=== PATIENT | female | born 1990 | race Caucasian/White ===

== ENCOUNTER 2018-04-27 22:22 | Emergency (ER) | payer OTHER ==
[~2018-04-27] VITALS: Ht 170.2 cm; Wt 98.2 kg
[2018-04-27] MEDS ORDERED: SUMA25TA9 PO (22:37)
[2018-04-28 01:00] VITALS: BP 147/97
== END 2018-04-28 01:03 | disposition home or self-care (01) ==
LOC: EMS 22:23
DX: J40 Bronchitis, not specified as acute or chronic (principal); R19.7 Diarrhea, unspecified; R11.10 Vomiting, unspecified; I10 Essential (primary) hypertension; Z88.8 Allergy status to other drugs, medicaments and biological substances; Z79.899 Other long term (current) drug therapy; Z98.890 Other specified postprocedural states
CPT/HCPCS: 99283

== ENCOUNTER 2022-01-23 13:47 | Emergency (ER) | payer OTHER ==
[~2022-01-23] VITALS: Ht 170.2 cm; Wt 100.0 kg
[2022-01-23 13:47] VITALS: BP 148/100
[~2022-01-23 13:47] MED LIST: SUMA25TA9 PO
[2022-01-23 17:41] LABS: COVID AG,FIA SOURCE NASOPHARYNGEAL
[2022-01-23 18:07] LABS: INFLUENZA TYPE A NEGATIVE FOR TYPE A (NEGATIVE); INFLUENZA TYPE B NEGATIVE FOR TYPE B (NEGATIVE)
[2022-01-23] MEDS ORDERED: OXYM15SP57 NASAL (19:04)
[2022-01-23] MEDS ORDERED: BENZ-70 PO (19:06)
== END 2022-01-23 20:19 | disposition left against medical advice (07) ==
LOC: EMS 13:47
DX: J40 Bronchitis, not specified as acute or chronic (principal); I10 Essential (primary) hypertension; Z20.822 Contact with and (suspected) exposure to COVID-19; Z87.09 Personal history of other diseases of the respiratory system; Z98.890 Other specified postprocedural states; Z88.8 Allergy status to other drugs, medicaments and biological substances
CPT/HCPCS: 71045; 87804; 99284